=== PATIENT | male | born 1945 | race Caucasian/White ===

== ENCOUNTER 2017-03-29 09:30 | Inpatient (IN) ==
[2017-03-25 15:10] LABS: Appearance,Urine CLEAR; Bilirubin,Urine NEG (NEG); Color,Urine YELLOW; Glucose,Urine (UA) NEGATIVE (NEG); Leukocyte Esterase,Urine NEG /uL (NEG); Nitrate,Urine NEG (NEG); Protein,Urine NEG (NEG); Specific Gravity,Urine 1.021 (1.000-1.035); Urine Blood NEG mg/dL (<0.03)
[2017-03-25 15:16] LABS: Basophils # (Auto) 0 K/mcL (0.0-0.3); Basophils % (Auto) 0.6 % (0.0-2.0); Eosinophils # (Auto) 0.2 K/mcL (0.0-0.7); Eosinophils % (Auto) 2.9 % (0.0-7.0); Granulocytes % (Auto) 58.5 % (38.0-78.0); Lymphocytes # (Auto) 2.1 K/mcL (1.5-4.8); Lymphocytes % (Auto) 29.1 % (15.5-49.0); Mean Cell Volume 94.7 fL (80.0-100.0); Mean Corpuscular HGB Conc 34.7 g/dL (31.0-36.0); Mean Corpuscular Hemoglobin 32.9 pg (26.0-34.0); Monocytes # (Auto) 0.6 K/mcL (0.1-0.9); Monocytes % (Auto) 8.9 % (1.0-12.0); Platelet Count 209 K/mcL (140-440); RBC 4.48 M/mcL (4.50-5.90); Red Cell Distribution Width 12.2 % (11.5-14.5)
[2017-03-25 15:35] LABS: ALT/SGPT 31 U/l (0-40); Albumin 4.3 gm/dL (3.2-5.2); Albumin/Globulin Ratio 1.6 (1.0-2.3); Alkaline Phosphatase 64 U/L (39-117); Blood Urea Nitrogen 19 mg/dl (8-23)
[2017-04-02] MEDS ORDERED: ceFAZolin 1 GM VIAL IV SCH (05:00)
--- NOTE | 2017-04-02 09:03 | XRay Report ---
CLINICAL INFORMATION: Low back pain COMPARISON: None. FINDINGS: Very slight rightward curve of lower thoracic and upper lumbar spine appreciated. There is no focal osseous abnormality. Mild L3-4 through L5-S1 degenerative disc disease is noted. There is moderate bilateral L5-S1 degenerative facet disease. Heavy atherosclerotic calcification seen in the aorta. Soft tissues are otherwise normal IMPRESSION: Degenerative change Interpreted and Authenticated by: Mohit Lopez 04/02/17
[2017-04-02] MEDS ORDERED: LIDOCAINE HCL/PF 100 MG/5 ML SYRINGE IV ONE (13:00)
[2017-04-02] MEDS ORDERED: ePHEDrine 50 MG/ML AMPUL IV ONE (13:00)
[2017-04-02] MEDS ORDERED: GLYCOPYRROLATE 0.2 MG/ML VIAL IV ONE (13:00)
[2017-04-02] MEDS ORDERED: NALBUPHINE 10 MG/ML AMPUL IV ONE (13:00)
[2017-04-02] MEDS ORDERED: ONDANSETRON 4 MG/2 ML VIAL IV ONE (13:00)
[2017-04-02] MEDS ORDERED: KETAMINE 100 MG/ML ML IV ONE (13:00)
[2017-04-02] MEDS ORDERED: HYDROmorphone 2 MG/ML SYRINGE IV ONE (13:00)
[2017-04-02] MEDS ORDERED: PHENYLEPHRINE 10 MG/ML VIAL IV ONE (13:00)
[2017-04-02] MEDS ORDERED: fentaNYL 250 MCG/5 ML VIAL IV ONE (13:00)
[2017-04-02] MEDS ORDERED: PROPOFOL 200 MG/20 ML VIAL IV ONE (13:00)
[2017-04-02] MEDS ORDERED: MIDAZOLAM 5 MG/5 ML VIAL IV ONE (13:00)
[2017-04-02] MEDS ORDERED: THROMBIN (BOVINE) 5,000 UNIT VIAL TOPICAL ONE (14:02)
[2017-04-02] MEDS ORDERED: GELATIN SPONGE,ABSORBABLE 1 EACH SPONGE TOPICAL ONE (14:02)
[2017-04-02] MEDS ORDERED: GELATIN SPONGE,ABSORBABLE 1 GM POWDER TOPICAL ONE (14:02)
[2017-04-02] MEDS ORDERED: GENTAMICIN SULFATE 800 MG/20 ML VIAL IR ONE (15:18)
[2017-04-02] MEDS ORDERED: ACETAMINOPHEN 1,000 MG/100 ML BOTTLE IV ONE (16:37)
[2017-04-02] MEDS ORDERED: METHOCARBAMOL 1,000 MG/10 ML VIAL IV PRN (16:37)
[2017-04-02] MEDS ORDERED: KETOROLAC 15 MG/ML VIAL IV PRN (16:37)
[2017-04-02] MEDS ORDERED: HYDROmorphone 2 MG/ML SYRINGE IV PRN (16:37)
[2017-04-02] MEDS ORDERED: diphenhydrAMINE 50 MG/ML VIAL IV PRN (16:37)
[2017-04-02] MEDS ORDERED: BENZOCAINE/MENTHOL 1 LOZENGE PO PRN ×2 (16:37→17:16)
[2017-04-02] MEDS ORDERED: IPRATROPIUM/ALBUTEROL 3 ML AMPUL.NEB NEB PRN (16:37)
[2017-04-02] MEDS ORDERED: METOPROLOL TARTRATE 5 MG/5 ML VIAL IV PRN (16:37)
[2017-04-02] MEDS ORDERED: ONDANSETRON 4 MG/2 ML VIAL IV PRN (16:37)
[2017-04-02] MEDS ORDERED: PROMETHAZINE 25 MG/ML VIAL IV PRN (16:37)
[2017-04-02] MEDS ORDERED: fentaNYL 100 MCG/2 ML VIAL IV PRN (16:37)
[2017-04-02] MEDS ORDERED: LACTATED RINGERS 1,000 ML IV SCH (16:45)
[2017-04-02] MEDS ORDERED: BUPIVACAINE PF 0.25% 30 ML VIAL IJ ONE (17:02)
[2017-04-02] MEDS ORDERED: METHOCARBAMOL 750 MG TABLET PO PRN (17:16)
--- NOTE | 2017-04-02 17:16 | Brief Operative Note ---
Date of procedure: 04/02/17 Pre-op diagnosis: stenosis with instability L4-S1 Post-op diagnosis: same Procedure: XLIF L4/5 with Psif L4/5 decompression L4-S1 Grafts/Implants: Yes (daniel) Anesthesia: GETA Complications: none Surgeon: Peewee Harris Hyperbaric Nurse: Donato Hilliard Estimated blood loss (cc): 200 Specimens Removed/Pathology: none sent Condition: stable Disposition: PACU
[2017-04-02] MEDS ORDERED: HYDROmorphone PCA 30 MG/30 ML PCA.VIAL IV PRN (17:22)
[2017-04-02] MEDS: 0.9 % SODIUM CHLORIDE 1,000 ML IV SCH (18:16)
[2017-04-02] MEDS: ONDANSETRON ODT 4 MG TABLET SL PRN (20:04)
[2017-04-02] MEDS: oxyCODONE/APAP 5/325MG TABLET PO PRN ×2 (20:35→23:17)
[2017-04-02] MEDS ORDERED: SENNOSIDES 1 TABLET PO SCH (21:00)
[2017-04-02] MEDS ORDERED: ATORVASTATIN 20 MG TABLET PO SCH (21:00)
[2017-04-02] MEDS: ceFAZolin 1 GM VIAL IV SCH (21:45)
[2017-04-02] MEDS: GLUCOSAMINE/CHONDROITIN SULF A 1 CAP CAPSULE PO SCH (23:12)
[2017-04-02] MEDS: DOCUSATE SODIUM 100 MG CAPSULE PO SCH (23:12)
[2017-04-03] MEDS: ONDANSETRON ODT 4 MG TABLET SL PRN (03:04)
[2017-04-03] MEDS: 0.9 % SODIUM CHLORIDE 1,000 ML IV SCH ×2 (03:09→11:41)
[2017-04-03] MEDS: ceFAZolin 1 GM VIAL IV SCH (05:27)
[2017-04-03 07:38] LABS: Blood Urea Nitrogen 14 mg/dl (8-23)
[2017-04-03] MEDS ORDERED: metFORMIN 500 MG TAB.XL.24H PO SCH (08:00)
[2017-04-03] MEDS ORDERED: amLODIPine 5 MG TABLET PO SCH (09:00)
[2017-04-03] MEDS ORDERED: ASPIRIN 325 MG ENTERIC COATED TABLET PO SCH (09:00)
[2017-04-03] MEDS ORDERED: FISH OIL 1,000 MG CAPSULE PO SCH (09:00)
[2017-04-03] MEDS ORDERED: METOPROLOL SUCCINATE 25 MG TAB.XL.24H PO SCH (09:00)
[2017-04-03] MEDS ORDERED: LISINOPRIL 5 MG TABLET PO SCH (09:00)
--- NOTE | 2017-04-03 09:04 | Orthopedic Progress Note ---
Subjective Patient information: Note initiated : 04/03/17 at 9:02 am Service Date, if different from initiated Date: [] Patient: Lucas Hurst 71 y/o M admitted on 04/02/17 for L4-5 Xlif with Posterior Medical Cortical Screws, . Chief Complaint: [] Interval history: doing ok but painful this am Objective Vital signs: Vital Signs Temp Pulse Pulse Resp BP BP Pulse Ox 04/03/17 07:11 97.3 F 20 144/74 96 04/03/17 04:00 97.6 F 82 16 120/70 96 04/02/17 23:17 97.9 F 78 20 135/78 96 04/02/17 20:55 97.1 F 70 20 152/78 96 04/02/17 20:25 72 20 115/63 94 04/02/17 20:00 96.9 F L 81 20 136/81 95 04/02/17 19:55 97.0 F 75 20 136/81 95 04/02/17 19:50 77 20 144/71 97 04/02/17 19:25 81 147/62 96 04/02/17 19:09 97.1 F 83 20 126/69 95 04/02/17 18:57 97.0 F 84 20 136/69 97 04/02/17 18:40 96.5 F L 82 20 153/73 93 04/02/17 18:30 97.1 F 82 12 152/75 95 04/02/17 18:15 97.0 F 77 12 160/65 96 04/02/17 18:00 96.9 F L 89 12 151/77 96 04/02/17 17:50 97.0 F 89 12 154/82 99 04/02/17 17:45 97.1 F 88 11 L 127/80 99 04/02/17 17:40 97.4 F 90 12 143/70 99 04/02/17 17:35 97.1 F 87 88 17 142/76 99 04/02/17 17:30 98.5 F 99 H 10 L 153/75 99 04/02/17 12:00 98 F 20 155/84 94 Intake and Output 04/02/17 04/03/17 04/03/17 21:59 05:59 13:59 Intake Total 3025 / 3025 1800 / 1800 120 / 120 Output Total 760 / 760 815 / 815 Balance 2265 / 2265 985 / 985 120 / 120 Intake: IV 3025 / 3025 1000 / 1000 Sodium Chloride 0.9% 1, 125 / 125 1000 / 1000 000 ml @ 125 mls/hr IV . Q8H [facility] Rx#:[id number] Lactated Ringers 1,000 ml 2800 / 2800 @ 20 mls/hr IV .Q24H [facility] Rx#:[id number] Oral 800 / 800 120 / 120 Output: Drainage 10 10 165 / 165 Left Lower Back JHON Drain 165 / 165 Urine Catheter Amount 650 / 650 650 / 650 Estimated Blood Loss 100 / 100 Other: Weight 283 lb 14.4 oz Intake & Output: Intake & Output 04/02/17 04/03/17 04/03/17 21:59 05:59 13:59 Intake Total 3025 / 3025 1800 / 1800 120 / 120 Output Total 760 / 760 815 / 815 Balance 2265 / 2265 985 / 985 120 / 120 Weight 283 lb 14.4 oz Intake: IV 3025 / 3025 1000 / 1000 Sodium Chloride 0.9% 1, 125 / 125 1000 / 1000 000 ml @ 125 mls/hr IV . Q8H [facility] Rx#:[id number] Lactated Ringers 1,000 ml 2800 / 2800 @ 20 mls/hr IV .Q24H [facility] Rx#:[id number] Oral 800 / 800 120 / 120 Output: Drainage 165 / 165 Left Lower Back JHON Drain 165 / 165 Urine Catheter Amount 650 / 650 650 / 650 Estimated Blood Loss 100 / 100 Incision: Yes healing Incision clean and dry: Yes Dressing: Yes clean, Yes dry, Yes intact Weight bearing status: full Neurological exam IM: Yes alert, Yes oriented X3, Yes motor sensory intact, Yes neurovascular intact Extremities exam IM: No calf tenderness, Yes Foot pink and warm, Yes neurovascular intact - Labs CBC & BMP: 04/03/17 05:11 04/03/17 05:11 Labs: Orthopedic Labs 03/25/17 13:55 PT 13.5 INR 1.0 04/03/17 03/25/17 05:11 13:55 Hgb 12.3 L 14.7 Hct 36.4 L 42.4 Assessment and Plan (1) Lumbar spinal stenosis pod #1 s/p lumbar surgery jhon drain management pain control pt just got brace this am Status: Acute
--- NOTE | 2017-04-03 09:06 | Discharge Summary ---
Ortho Discharge - Spine - Patient Instructions Discharge Diet: Regular Diet Activity: activity as tolerated Spine Protocol: Limit bending and stooping. No heavy lifting. Wear brace/collar at all times except when showering and sleeping. Dressing Care: May shower in 2 days Additional Dressing Instructions: May Shower 48 hours post-operative and replace with dry dressing after shower. Patient Education: Lumbar Spinal Fusion (DC) - Problem Maintenance (1) Lumbar spinal stenosis Status: Acute - Follow Up Plan Follow Up Appointments: Peewee Harris MD [Physician] - 04/15/17 11:00 am Disposition: Home, Self-Care Prognosis: Good Rehab Potential: Good I certify that the patient requires SNF services: No Overall status at discharge: patient is progressing back to baseline - Orders For Discharge Prescriptions: Methocarbamol [Robaxin] 750 mg PO Q6HP PRN #20 tablet PRN Reason: Muscle Spasm oxyCODONE/APAP [Percocet 5-325 mg] 1 - 2 tab PO Q4HP PRN #60 tablet PRN Reason: Pain
[2017-04-03] MEDS: GLUCOSAMINE/CHONDROITIN SULF A 1 CAP CAPSULE PO SCH (09:23)
[2017-04-03] MEDS: DOCUSATE SODIUM 100 MG CAPSULE PO SCH (09:25)
[2017-04-03] MEDS: oxyCODONE/APAP 5/325MG TABLET PO PRN ×2 (09:26→14:03)
--- NOTE | 2017-04-05 09:00 | Operative Note ---
DATE OF OPERATION: 04/02/2017 PREOPERATIVE DIAGNOSES: 1. Lumbar stenosis L4 through S1. 2. Instability, L4-L5. POSTOPERATIVE DIAGNOSES: 1. Lumbar stenosis L4 through S1. 2. Instability, L4-L5. OPERATION PROPOSED: 1. Anterior interbody fusion via lateral retroperitoneal approach. This is an XLIF approach. 2. Application of prosthetic device interbody space. 3. Posterior nonsegmental instrumentation using a medial cortical screw construct, also from [employer]. 4. Posterior/posterolateral fusion L4-L5. 5. Lumbar decompression with decompression of the central canal, lateral recess, and neural foramen L4 through S1. OPERATION PERFORMED: 1. Anterior interbody fusion via lateral retroperitoneal approach. This is an XLIF approach. 2. Application of prosthetic device interbody space. 3. Posterior nonsegmental instrumentation using a medial cortical screw construct, also from [employer]. 4. Posterior/posterolateral fusion L4-L5. 5. Lumbar decompression with decompression of the central canal, lateral recess, and neural foramen L4 through S1. OPERATING SURGEON: Peewee Harris MD. [employer]CROW OFFICER: Donato Hilliard PA-C. INDICATIONS: This is a gentleman who has had disabling radicular/claudication pain. He has stenosis with instability. We have elected to proceed with decompression and fusion. OPERATION IN DETAIL: Informed consent was obtained. He was taken to the operating room where he was provided the appropriate anesthetic and prophylactic antibiotics. He was carefully positioned. He was initially placed laterally. A retroperitoneal approach was performed. I advanced through the psoas using the trocars that were connected to EMG. I sequentially dilated and placed a retractor at the L4-L5 interspace that was stabilized to the disc space with a posterior bautista. I confirmed the position fluoroscopically. I then incised the annulus. A Mckeon was passed across the disc space bringing the contralateral annulus. I debride disc material and extensively curetted the disc space, debriding all disc material. I selected an appropriate sized anterior graft/cage, and this was filled with morcellized bone graft and impacted into the site prepared for it to allow for fusion and structural stability. I then turned my attention posteriorly. A midline incision was made. I dissected down to expose the spinous process and lamina of L4 through S1. A self-retaining retractor was applied. I decompressed the canal by removing the inferior one-half of the spinous process and lamina of L4 and the superior portion of L5. I debrided the ligamentum flavum. I removed the hypertrophied medial border of the facet joint and the hypertrophied ligamentum flavum, decompressing the central canal and the lateral recess, as well as into the opening of the neural foramen. I, on the right side, decompressed the lateral recess and the opening the neural foramen at L5-S1. At the end of the decompression of the central canal, lateral recess, and neural foramen L4 through S1 seemed very adequately patent. I then placed my posterior instrumentation. This being a medial cortical screw construct. I identified the appropriate starting position fluoroscopically. I placed a teagan with the bur. I then under fluoroscopic guidance, and as well using EMG monitoring, advanced a drill cephalad and laterally cannulating the pedicle. The pedicle was then tapped and probed. An appropriate length pedicle screw was placed at L4-L5, both on the right and on the left. I then performed the posterior and posterolateral fusion. I extensively decorticated posterolateral aspect of the spine, this being the transverse process, pars interarticularis and facet joints. I packed morcellized graft into and against the decorticated posterolateral aspect of the spine to allow perfusion. A chely was placed into the top-loading pedicle screws. I tightened and torqued the chely into place. I had compressed across the interbody graft. I did irrigate thoroughly with pulsatile lavage prior to placing any bone graft. I closed over a deep drain with 0 Vicryl in interrupted fashion, 2-0 Vicryl inverted deep dermal, and running subcuticular. The procedure was tolerated well. There were no complications. Estimated blood loss is 200 mL. GDD:gregg Job ID: [id number] Doc ID: [id number] Peewee Harris MD
== END 2017-04-03 15:40 | disposition home or self-care (01) | DRG 460 ==
LOC: MEDSUR 04-02 08:09
PROVIDERS: ADMIT Orthopaedic Surgery Orthopaedic Surgery of the Spine; ATTEND Orthopaedic Surgery Orthopaedic Surgery of the Spine